=== PATIENT | female | born 1975 | race Caucasian/White ===

== ENCOUNTER 2018-03-15 05:49 | Inpatient (IN) | payer SELFPAY ==
--- NOTE | 2018-03-14 21:21 | PDGENHP ---
History and Physical - Chief Complaint Left Hip Pain - History of Present Illness 1. Left~Hip Dyplasia 2. ~~Right Borderline hip dysplasia 3.~~~Bilateral~Femoroacetabular impingement (ABBY) Cam type,~with~resultant labral tear; LEFT>RIGHT 4.~~~Right femoral retro-torsion 5.~~~Radiographic~signs of~Osteitis Pubis HISTORY OF PRESENT ILLNESS: Markis a 42 y.o.~very~~active female~who I have had the pleasure to consult on today. 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 ~Markenjoys ultra marathons, lifting weights, cross country skiing. Halima's~bilateral~hip pain~(L>R)~started 16 years ago, with~some~recalled trauma or injury (fractured coccyx in 1987) (stress~fracture right inferior pubic ramus 2003), and with~some~previous complaints. Markhas~a known history of hip dysplasia. Referred by Dr. Thompson for~hip~dysplasia. Presentation today is of~anterior, posterior, lateral~bilateral~hip pain. ~The hip~does~wake her~at night~and does~click and catch on her. Sitting~can be a real struggle~for her.~Markdoes~report suffering from lower back pain episodes. Markhas~participated in physical therapy (June 2017-present)~and has~ tried other conservative measures including dry needling, chiropractic treatments and massage therapy.~She~has not~received sufficient symptomatic improvement. Markhas not~utilized medication for pain management. Markunderstands that she~has a hip and pelvis problem which should be researched and wishes to get a better understanding of her~hip status, followed by an establishment of a treatment strategy, hoping she~would be able to get back to her~well being active life. History: Past medical history:~~ None which is relevant~ Relevant familial history:~None which is relevant~ Past surgical history:~ No. Surgery Anesthesia 1 Right ankle reconstruction general 2 Left ankle reconstruction general 3 Bilateral breast implants general Markdenies problematic issues with general anesthesia in the past. I have reviewed, verified and agree with the past medical, surgical, family and social history. Current Medications:~currently has no medications in their medication list. ALLERGIES:~is allergic to adhesive; erythromycin; and keflex [cephalexin]. Objective: Physical Examination: Markis 5~feet 4~inches tall and weighs 108~Lbs. Markis AAO x3; she~is well- nourished, in NAD. Skin is warm and dry. ~Breathing is non-labored. ~CV with RRR by pulse. Abdomen is soft, NTND. Currently,~she~walks with a abnormal~antalgic gait favoring LEFT side Trendelenburg sign is~negative~and proprioception is reduced,~both~sides. She~presents with mild~signs of joint laxity. Beightons Score:~2 (Right thumb, touching floor) Lower spine examination is~positive~for sciatic~or femoral nerve irritation with negative~SLR &~femoral stretch tests. Range of motion of the spine is normal~for flexion, extension, and rotations, with no~associated pain. Strength, Sensation and pulses are~normal -~bilaterally Ankles and knees exams are~normal~and no~mal-alignment is evident. She~has~right~1~cm short leg length discrepancy. Thigh circumference is~symmetric~with no evidence for muscle atrophy~on both~ sides. Hip ROM (degrees): FL ER At 90~hip FL IR At 90~hip FL AB AD EX IR Neutral hip ER Neutral hip R 110 55 20 40 10 15 40 25 L 110 45 40 40 10 20 50 20 Specific hip and pelvis tests: Impingement Test JE Roll Add. Longus R +++ +++ Negative +++ L +++ +++ Negative +++ Glut. Med ITB Posterior Imp R Negative 5/5 strength Negative 5/5 strength Negative L Negative 5/5 strength Negative 5/5 strength Negative Squeeze test measured~strong Bony Symphysis pubis is~painful~to touch while concentric activity of the rectus abdominis, does~produce pain at its insertion. Ilio Psos specific tests are~positive for pain during cycling for~both hips~and no snap. HF has~good strength, no pain~both hips. Greater trochanteric burse is~pain free~on both hips. Piriformis tests: FAIR is~negative,~with no~local signs of neuritis related to sciatic nerve. SIJs examination is~normal~with normal~JE in relation and local tenderness. Hamstrings tests are~negative~functional contraction and postive~tendinopathy both hips. Adductor Tree origin: tender to palpation bilaterally. Imaging: Radiology studies which I have personally reviewed, analyzed and measured are below: XR: AP of the hip and pelvis: Performed in a~good~technique Coccyx to pubic symphysis distance~1.5~cm. Standing [place] Lines are~preserved. Minimal~Pathological signs are seen in the Symphysis Pubis. Minimal~Pathological signs are seen at the Ischial tuberosity. ~ Specific measurements show: NSA~ LCE Sourcil~Angle Sharp's angle Lat. Cam Lat. Pincer C.Over~sign Head~Coverage % ATDmm R N 25 8 38 + - - 85 N L N 18 14 45 + - - 75 N Pos. wall sign ISS NAD ~~Dysplasia Comments R Negative Negative 17.2~mm + L Negative Negative 16.6~mm ++ Sclerosis Sup. Lat. OA Cysts Joint Space-WBZ Joint Space-Medial R Negative Negative Negative 4.4~mm 3.9~mm L Negative Negative Negative 5.3~mm 4.9~mm CT / 3D:~MEASUREMENTS: Right hip: Lateral center edge angle: 15 degrees Anterior center edge angle: 38 degrees Equatorial acetabular version angle: 29 degrees Anteverted. Cranial acetabular version angle: 30 degrees Anteverted. Femoral neck shaft angle: 140 degrees Femoral neck version angle: 14 degrees internalized Femoral shaft torsion angle: 0 degrees Left hip: Lateral center edge angle: 18 degrees Anterior center edge angle: 34 degrees Equatorial acetabular version angle: 33 degrees Anteverted. Cranial acetabular version angle: 28 degrees Anteverted. Femoral neck shaft angle: 143 degrees Femoral neck version angle: 4 degrees externalized Femoral shaft torsion angle: 17 degrees externalized MRI shows:~good cartilage coverage, labral tear, no bone edema or cysts. Impression and plan:~ Halima~is a 42 y.o.~active female~suffering from symptomatic Bilateral~hip pain due to~Hip Dyplasia and~Femoroacetabular impingement (ABBY)~Cam type,~with~ resultant labral tear causing significant disability to~her~and altering her~ sport and life activities. Physical examination, imaging, and~her~story correspond with the diagnosis mentioned above. I explained that hip dysplasia is a condition wherein the hip joint has excessive play~and instability due to a variety of factors, including the depth and adequacy of the socket, the orientation of the femur bone, and ligament laxity around the hip joint. Dysplasia ranges in severity from borderline to alexandru, with treatment options being specific to the specific nature of the problem. Left untreated, the instability in the hip joint can cause progressive tearing of the labrum and deterioration of the surface cartilage, ultimately resulting in progressive osteoarthritis of the hip. I explained that femoroacetabular impingement (ABBY - Cam type) arises due to a bony or soft tissue conflict between the femur (ball) and acetabulum (socket) caused by an abnormality in the shape of the femoral head and neck. Over time, repetitive impingement can result in damage to the labrum and adjacent surface cartilage within the socket, ultimately giving rise to progressive osteoarthritis of the hip. I explained that although a labral tear can be a source of pain, it is rarely the root of the problem and typically occurs secondary to an underlying abnormality in the shape and mechanics of the hip joint. I reviewed conservative treatment options for Dysplasia and ABBY including activity modification to avoid positions of impingement or instability, physical therapy, non-steroidal anti-inflammatory medications, and various injections (corticosteroid and PRP) aimed at reducing inflammation in the hip joint or/and preventing dynamic instability and impingement. PRP injections may promote healing and reduce symptoms in certain cases but it will not repair chronically damaged tissue. Although these measures may help to buy time~and reduce current level of symptoms, they are not a definitive solution to the problem given the underlying abnormality in the shape of the hip joint. Patients who have failed conservative management and continue to experience symptoms are candidates for definitive surgical treatment, which may consist of hip arthroscopy alone or in combination with more invasive bony realignment procedures of the hip socket and/or femur called periacetabular osteotomy (LISANDRA) or derotational femoral osteotomy (DFO). Hip arthroscopy typically includes treating the labrum with either repair or reconstruction of the torn labrum; as well as addressing the underlying abnormalities by restoring the normal shape to the hip joint. If the cartilage is damaged a Microfracture surgical procedure may also be necessary to help stimulate the growth of fibrocartilage. If a patient requires a labral reconstruction or a Microfracture, the initial rehabilitation from the surgery may take longer, but the terminal supervisor results are typically favorable. I reviewed the technical aspects of periacetabular osteotomy (LISANDRA) including risks, benefits, and expected course of recovery.~Markunderstands that LISANDRA is an inpatient procedure carried out through two medium sized incisions on the front and back of the hip joint. The hip socket is cut, realigned, and stabilized with 2 3 internal screws. Risks include infection, bleeding, injury to nearby nerves or vessels, stiffness, persistent pain, instability, failure of bony healing, implant related complications, and venous thromboembolic disease. Rarely, revision surgery may be required to address these problems. Risks, potential complications, side effects and recovery from surgical procedure were discussed in length. We explained how this surgery is an open procedure, and though patients tend to do well in the long-term, it involves significant pain in the first 2-4 weeks post-op and a rather lengthy rehab.~Overall recovery takes approximately 6 12~months depending on the extent of damage and degree of repair. Markunderstands that she~will undergo hip arthroscopy 1 week prior to the LISANDRA to address damage inside the hip joint. Markunderstands that hip arthroscopy and LISANDRA are two separate procedures that are best performed one week apart, with the arthroscopy commencing first to "tighten up" any pathology evident in the hip joint (labral repair, etc.) and the LISANDRA open procedure occurring 7-10 days later to realign the acetabulum. We asked Halima to run up and down the stairs to elicit and localize her source of pain. ~After doing this, she was able to localize her pain. ~We then did an injection into her LEFT HIP JOINT. In order to differentiate between the various possible sources of pain~Mark opted to move forward with an intra articular injection today in clinic. After verbal consent was obtained and Markvoiced understanding of risks of infection , misplaced injection, fat or skin atrophy or injection into unintended structures, skin was prepped and draped in routine sterile fashion. With sterile technique, after local skin and subcutaneous tissues were injected with 5cc 1% lidocaine, an injection of 7cc of 1% lidocaine+marcaine~was injected into Halima's hip joint without complication. The procedure was well tolerated.~ Marknoted improved symptoms with activity immediately after injection. The injection took 100% of the pain away,~confirming~the hip joint as the major source of her~pain. This injection took away 100% of all of~her~sources of pain: adductor tree origin, hamstring, and pubic symphysis. We discussed how she can either do Left hip scope with Dr Thompson followed by a LISANDRA mid/end February or do a scope only for the right side now, followed by scope+LISANDRA on the left 3 month later. Markwill contact us if she~wishes to pursue further treatment in the future. Markis happy with this plan. I have also supplied~her~with handouts, outlining the expected surgical treatment and rehab involved. I wish~Markall the best, ~~ Gray Qureshi, PAC History Information - Allergies/Home Medication List Allergies/Adverse Reactions: adhesive tape Allergy (Verified 02/11/18 11:47) cephalexin [From Keflex] Allergy (Verified 02/11/18 11:47) Vertigo erythromycin base Allergy (Verified 02/11/18 11:47) Vomiting Home Medications: Aspirin [Aspirin 325 mg (*)] 325 mg PO DAILY 02/11/18 [Last Taken Unknown] Diazepam [Valium 5 MG (*)] 5 mg PO TID PRN 02/11/18 [Last Taken Unknown] Hydrocodone/APAP 5/325 [[place] 5/325 (*)] 1 - 2 each PO Q4-6PRN PRN 02/11/18 [ Last Taken Unknown] Naproxen/Esomeprazole Mag [Vimovo Dr 375-20 mg Tablet] 1 each PO BIDMEAL [Last Taken Unknown] Ondansetron Odt [Zofran Odt 4 mg (*)] 4 mg PO Q4 PRN 02/11/18 [Last Taken Unknown] I have personally reviewed and updated: medical history - Social History Smoking Status: Never smoked Review of Systems Review of Systems: Physical Exam Physical Exam:
[2018-03-15] MEDS ORDERED: PREGABALIN 150 MG CAP PO ONE (06:03)
[2018-03-15] MEDS ORDERED: LR 1,000 ML IV ONE (06:03)
[2018-03-15] MEDS ORDERED: TRANEXAMIC ACID 1,000 MG in NS 100 ML IV ONE (06:03)
[2018-03-15] MEDS ORDERED: ACETAMINOPHEN 500 MG TAB PO ONE (06:03)
[2018-03-15] MEDS ORDERED: LIDOCAINE 1% 2 ML INJ ID PRN (06:03)
[2018-03-15] MEDS ORDERED: CLINDAMYCIN 900 MG/DEXTROSE 50 ML IV ONE (06:03)
[2018-03-15] MEDS ORDERED: SCOPOLAMINE HYDROBROMIDE 1 MG/3 DAYS PATCH TD ONE (06:03)
[2018-03-15] MEDS ORDERED: LIDOCAINE 1% 2 ML INJ ONE (06:37)
--- NOTE | 2018-03-15 07:11 | PDANEPAE ---
ANE Past Medical History - Cardiovascular History Hx Hypertension: No Hx Arrhythmias: No Hx Chest Pain: No Hx Coronary Artery / Peripheral Vascular Disease: No Hx CHF / Valvular Disease: Yes Hx Palpitations: No Cardiovascular History Comment: Pt was told when she was 17yrs old she had mitral valve prolape. never had any issues - Pulmonary History Hx COPD: No Hx Asthma/Reactive Airway Disease: No Hx Recent Upper Respiratory Infection: No Hx Oxygen in Use at Home: No Hx Sleep Apnea: No Sleep Apnea Screening Result - Last Documented: Negative - Neurologic History Hx Cerebrovascular Accident: No Hx Seizures: No Hx Dementia: No - Endocrine History Hx Diabetes: No - Renal History Hx Renal Disorders: No - Liver History Hx Hepatic Disorders: No - Neurological & Psychiatric Hx Hx Neurological and Psychiatric Disorders: No - Cancer History Hx Cancer: No - GI History Hx Gastrointestinal Disorders: Yes Gastrointestinal History Comment: hip dysplasia - Other Health History Other Health History: none - Chronic Pain History Chronic Pain: No - Surgical History Prior Surgeries: 4yrs ago bilat ankle reconstructive ANE Review of Systems Review of Systems: - Exercise capacity METS (RN): 6 METS ANE Patient History - Allergies Allergies/Adverse Reactions: adhesive tape Allergy (Verified 02/11/18 11:47) cephalexin [From Keflex] Allergy (Verified 02/11/18 11:47) Vertigo erythromycin base Allergy (Verified 02/11/18 11:47) Vomiting - Home Medications Home medications: home medication list seen and reviewed Home Medications: Aspirin [Aspirin 325 mg (*)] 325 mg PO DAILY 02/11/18 [Last Taken Unknown] Diazepam [Valium 5 MG (*)] 5 mg PO TID PRN 02/11/18 [Last Taken Unknown] Hydrocodone/APAP 5/325 [[place] 5/325 (*)] 1 - 2 each PO Q4-6PRN PRN 02/11/18 [ Last Taken Unknown] Naproxen/Esomeprazole Mag [Vimovo Dr 375-20 mg Tablet] 1 each PO BIDMEAL [Last Taken Unknown] Ondansetron Odt [Zofran Odt 4 mg (*)] 4 mg PO Q4 PRN 02/11/18 [Last Taken Unknown] - NPO status NPO Status: no food or drink >8 hours NPO Since - Liquids (Date): 03/15/18 NPO Since - Liquids (Time): 22:00 NPO Since - Solids (Date): 03/15/18 NPO Since - Solids (Time): 19:00 - Anes Hx Anes Hx: no prior problems - Smoking Hx Smoking Status: Never smoked - Family Anes Hx Family Hx Anesthesia Complications: none ANE Labs/Vital Signs - Vital Signs Height: 163.83 cm Weight: 47.627 kg ANE Physical Exam - Airway Neck exam: FROM (Pt reports painless TMJ clicking with jaw opening.) Mallampati Score: Class 2 Mouth exam: normal dental/mouth exam - Pulmonary Pulmonary: no respiratory distress, no rales or rhonchi, clear to auscultation - Cardiovascular Cardiovascular: regular rate and rhythym, no murmur, rub, or gallop - ASA Status ASA Status: II ANE Anesthesia Plan Anesthesia Plan: general endotracheal anesthesia
[2018-03-15] MEDS ORDERED: MIDAZOLAM 2 MG/2 ML VIAL IVP ONE (07:16)
[2018-03-15 07:29] LABS: PLATELET COUNT 134 10^3/uL (150-400)
[2018-03-15] MEDS ORDERED: DEXMEDETOMIDINE HCL 400 MCG in NS 100 ML IV SCH (07:30)
[2018-03-15] MEDS ORDERED: PROPOFOL 200 MG/20 ML VIAL ONE (07:34)
[2018-03-15] MEDS ORDERED: LIDOCAINE 2% 2 ML INJ ONE (07:36)
[2018-03-15] MEDS ORDERED: DEXAMETHASONE 4 MG/ML VIAL ONE ×2 (07:36)
[2018-03-15] MEDS ORDERED: ONDANSETRON 4 MG/2 ML VIAL ONE (07:36)
[2018-03-15] MEDS ORDERED: ROCURONIUM 50 MG/5 ML VIAL ONE (07:36)
[2018-03-15] MEDS ORDERED: KETAMINE 200 MG/20 ML VIAL ONE (07:39)
[2018-03-15] MEDS ORDERED: CITRATE DEXTROSE SOLN 500 ML BAG ONE (08:08)
[2018-03-15] MEDS ORDERED: PHENYLEPHRINE HCL 100 MCG/ML SYR ONE (08:08)
[2018-03-15] MEDS ORDERED: PHENYLEPHRINE 10 MG/ML SDV ONE (08:49)
[2018-03-15] MEDS ORDERED: GLYCOPYRROLATE 0.2 MG/1 ML VIAL ONE (09:03)
[2018-03-15] MEDS ORDERED: ONDANSETRON 4 MG/2 ML VIAL IVP PRN ×2 (12:31→13:07)
[2018-03-15] MEDS ORDERED: ACETAMINOPHEN 500 MG TAB PO PRN (12:31)
[2018-03-15] MEDS ORDERED: NALOXONE HCL 0.4 MG/ML INJ IVP PRN ×2 (12:31→13:09)
[2018-03-15] MEDS ORDERED: oxyCODONE IR 5 MG TAB PO PRN ×2 (12:31→13:09)
[2018-03-15] MEDS ORDERED: LR 500 ML IV PRN (12:31)
[2018-03-15] MEDS ORDERED: PROMETHAZINE HCL 25 MG/ML INJ IVP PRN (12:31)
[2018-03-15] MEDS ORDERED: DIAZEPAM 5 MG/ML 1 ML SYR IVP PRN (12:31)
[2018-03-15] MEDS ORDERED: MEPERIDINE 25 MG/0.5 ML AMP IVP PRN (12:31)
[2018-03-15] MEDS ORDERED: MAGNESIUM HYDROXIDE 30 ML UDCUP PO PRN (13:07)
[2018-03-15] MEDS ORDERED: DIAZEPAM 2 MG TAB PO PRN (13:07)
[2018-03-15] MEDS ORDERED: POLYETHYLENE GLYCOL 3350 17 GM PKT PO PRN (13:07)
[2018-03-15] MEDS ORDERED: ONDANSETRON DISINTEGRATING 4 MG TAB PO PRN (13:07)
[2018-03-15] MEDS ORDERED: BISACODYL 10 MG SUPP PR PRN (13:07)
[2018-03-15] MEDS ORDERED: LACTULOSE 20 GM/30 ML UDCUP PO PRN (13:07)
[2018-03-15] MEDS ORDERED: HYDROmorphONE/DILAUDID 6 MG/30 ML PCA IV PRN (13:09)
[2018-03-15] MEDS ORDERED: METOCLOPRAMIDE 10 MG/2 ML VIAL IVP PRN (13:09)
[2018-03-15] MEDS ORDERED: diphenhydrAMINE 25 MG CAP PO PRN (13:09)
[2018-03-15] MEDS: PHENYLEPHRINE HCL 100 MCG/ML SYR IVP PRN ×2 (13:17→13:31)
--- NOTE | 2018-03-15 13:31 | POSTANESTH ---
Post Anesthetic Evaluation Cardiovascular Status: Tx Hyper/Hypo-tension (Hypotensive on arrival (systolic 80s), likely due to dexmedetomidine. Giving fluid and phelylephrine as needed.) Respiratory Status: Normal, Stable, Similar to Pre-op Cond. Level of Consciousness/Mental Status: Can Participate in Eval, Mildly Sleepy, Arousable Pain Control: Adequate, Prn Tx Ordered Nausea/Vomiting Control: Adequate, Prn Tx Ordered Complications Possibly Related to Anesthesia: None Noted
[2018-03-15] MEDS ORDERED: oxyCODONE IR 5 MG TAB ONE (13:46)
[2018-03-15] MEDS ORDERED: ACETAMINOPHEN 500 MG TAB ONE (13:47)
[2018-03-15] MEDS ORDERED: fentaNYL 100 MCG/2 ML INJ ONE (13:47)
[2018-03-15] MEDS: fentaNYL 100 MCG/2 ML INJ IVP PRN ×2 (13:48→13:53)
[2018-03-15] MEDS: oxyCODONE IR 15 MG TAB PO SCH ×3 (14:45→21:49)
[2018-03-15] MEDS: NS 1,000 ML IV SCH (14:48)
--- NOTE | 2018-03-15 15:05 | PDMN ---
Medical Necessity Medical necessity: MARIANELA Grg musculoskeletal sgy - [facility] INPT only
[2018-03-15] MEDS: SENNOSIDES/DOCUSATE SODIUM TAB PO SCH (21:49)
[2018-03-15] MEDS: NAPROXEN SODIUM 220 MG TAB PO SCH (22:41)
[2018-03-16] MEDS: NS 1,000 ML IV SCH (01:02)
[2018-03-16] MEDS: oxyCODONE IR 15 MG TAB PO SCH ×6 (01:03→21:05)
[2018-03-16] MEDS: NAPROXEN SODIUM 220 MG TAB PO SCH ×2 (09:52→21:04)
[2018-03-16] MEDS: SENNOSIDES/DOCUSATE SODIUM TAB PO SCH ×2 (09:53→21:05)
[2018-03-16] MEDS: PANTOPRAZOLE SODIUM 40 MG TAB PO SCH (09:53)
[2018-03-16] MEDS: ACETAMINOPHEN 325 MG TAB PO PRN ×2 (11:09→21:09)
--- NOTE | 2018-03-16 12:04 | ASMTCMCOM ---
CM Note CM Note Notes: Pt had planned surgery for hip dysplasia. PT rec home/outpatient, OT eval pending. Pt has three children at home. Pt likely independent. CM to follow. Date Signed: 03/16/2018 12:04 PM Electronically Signed By:LISBETH Luna
--- NOTE | 2018-03-16 18:21 | SOAPPROG ---
SOAP Progress Note Assessment/Plan: Assessment: 1 day post op Left Periacetabular Osteotomy Plan: Pelvis Xray in the morning, if this looks good she can be discharged home up with PT/OT Oral analgesics if needed. 03/16/18 18:13 Subjective: Halima is doing very well this evening. She denies having any pain despite not having taken an opioid since yesterday afternoon. She denies any nausea, cp or sob. She's been up walking the halls. She'd like to go home tomorrow. Objective: Vital Signs Temp Pulse Resp BP Pulse Ox 36.6 C 67 14 90/38 L 93 03/16/18 15:28 03/16/18 15:28 03/16/18 15:28 03/16/18 15:28 03/16/18 15:28 Laboratory Results 03/16/18 04:38 03/16/18 04:38 03/15/18 03/16/18 03/17/18 05:59 05:59 05:59 Intake Total 5825 Output Total 2825 1600 Balance 3000 -1600 Well appearing in NAD Left hip: dressings clean dry intact some ecchymosis and edema some thigh numbness NVI distally Full ROM of foot, EHL, and ankle - Pending Discharge Pending Discharge Within 24 Hours: Yes Pending Discharge Date: 03/17/18 Pending Discharge Time: 11:00 ICD10 Worksheet Patient Problems: Problems Problem Status Onset Post-operative pain Acute - ICD10 Problem Qualifiers (1) Post-operative pain
[2018-03-17] MEDS: oxyCODONE IR 15 MG TAB PO SCH ×3 (01:46→10:23)
[2018-03-17] MEDS: NAPROXEN SODIUM 220 MG TAB PO SCH (08:35)
[2018-03-17] MEDS: SENNOSIDES/DOCUSATE SODIUM TAB PO SCH (10:22)
[2018-03-17] MEDS: PANTOPRAZOLE SODIUM 40 MG TAB PO SCH (10:22)
[2018-03-17 11:29] VITALS: BP 100/58
[2018-03-17] MEDS ORDERED: ASPIRIN EC 81 MG TAB PO SCH (13:07)
--- NOTE | 2018-03-17 14:17 | ASMTLACE ---
JAYLENE Length of stay for Answers: 3 days current admission Acuity / Level of Answers: Yes Care: Did the patient have an inpatient admission? 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
--- NOTE | 2018-03-17 14:19 | ASMTCMCOM ---
CM Note CM Note Notes: Pt medically stable for d/c. PT/OT clear pt for home, no CM d/c needs identified. Date Signed: 03/17/2018 02:19 PM Electronically Signed By:LISBETH Luna
--- NOTE | 2018-03-23 22:00 | GDS ---
DISCHARGE SUMMARY The patient underwent a left periacetabular osteotomy for left hip acetabular dysplasia on March 15, 2018. Intraoperatively, she chose not to have a spinal. Garcia was placed, which was discontinued the following day. She was up on her own the night of her surgery, was up walking the halls her 1st postoperative day. She did not take any oral analgesia and did not use the POLICE RECORDS CLERK. Pelvis x-ray was obtained on her 1st postoperative day, which showed good bone and screw fixation. She was discharged on her 1st postoperative day in good condition. She will go home with SCDs to be worn 24 hours a day, 7 days a week for 2 weeks, and thereafter only at night for one other week. She will be nonweightbearing on her left lower extremity for 2 weeks until x-rays are obtained at her 1st postoperative visit. She will be using baby aspirin daily for 1 month for DVT prophylaxis. She was discharged in good condition. /[id number]/MODL MTDD
== END 2018-03-17 13:52 | disposition home or self-care (01) | DRG 482 ==
LOC: F3N 05:49
PROVIDERS: ADMIT Orthopaedic Surgery Sports Medicine; ATTEND Orthopaedic Surgery Sports Medicine
PROC: 0Q830ZZ Division of Left Pelvic Bone, Open Approach (ICD-10-PCS; principal; 2018-03-15 07:15)
PROC: 0SSB04Z Reposition Left Hip Joint with Internal Fixation Device, Open Approach (ICD-10-PCS; principal; 2018-03-15 07:15)
DX: M25.852 Other specified joint disorders, left hip (principal); Q65.89 Other specified congenital deformities of hip
CPT/HCPCS: 97116-GP; 97161-GP; 97165-GO; 97530-GO; 97530-GP; 97535-GO; C1713; J1100; J2270; J2370; J2405; J2704; J3010; J7060

== ENCOUNTER 2018-10-04 05:46 | Day surgery (SDC) | payer SELFPAY ==
--- NOTE | 2018-10-03 20:53 | PDGENHP ---
History and Physical - Chief Complaint Left Hip Pain - History of Present Illness 1. History of Left LISANDRA 2. 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 ~Markenjoys ultra marathons, lifting weights, cross country skiing. Halima's~Left~hip pain~started 16 years ago, with~some~recalled trauma or injury~ (fractured coccyx in 1987) (stress~fracture right inferior pubic ramus 2003), and with~some~previous complaints.~Markhas~a known history of hip dysplasia. Referred by Dr. Thompson for~hip~dysplasia. Presentation today is of~anterior, posterior, lateral~bilateral~hip pain. ~The hip~does~wake her~at night~and does~click and catch on~her. Sitting~can be a real struggle~for her.~Markdoes~report suffering from lower back pain episodes. Markhas~participated in physical therapy (June 2017-present)~and has~ tried other conservative measures including dry needling, chiropractic treatments and massage therapy.~She~has not~received sufficient symptomatic improvement. Markhas not~utilized medication for pain management. Markunderstands that~siena~has a hip and pelvis problem which should be researched and wishes to get a better understanding of~her~hip status, followed by an establishment of a treatment strategy, hoping~siena~would be able to get back to~her~well being active life. History: Past medical history:~~ None which is relevant~ Relevant familial history:~None which is relevant~ Past surgical history:~ No. Surgery Anesthesia 1 Right ankle reconstruction general 2 Left ankle reconstruction general 3 Bilateral breast implants general 4. Left Hip Arthroscopy 5. Left LISANDRA Varghese~denies problematic issues with general anesthesia in the past. I have reviewed, verified and agree with the past medical, surgical, family and social history. Current Medications:~currently has no medications in their medication list. ALLERGIES:~is allergic to adhesive; erythromycin; and keflex [cephalexin]. Objective: Physical Examination: Markis 5~feet~4~inches tall and weighs~108~Lbs. Markis AAO x3; she~is well- nourished, in NAD. Skin is warm and dry. ~Breathing is non-labored. ~CV with RRR by pulse. Abdomen is soft, NTND. Currently,~siena~walks with a~abnormal~antalgic gait favoring LEFT side Trendelenburg sign is~negative~and proprioception~is reduced,~both~sides. She~presents~with mild~signs of joint laxity.~Beightons Score:~2 (Right thumb, touching floor) Lower spine examination is~positive~for sciatic~or femoral nerve irritation with negative~SLR &~femoral stretch tests. Range of motion of the spine is normal~for flexion, extension, and rotations,~with no~associated pain. Strength, Sensation and pulses are~normal -~bilaterally Ankles and knees exams are~normal~and~no~mal-alignment is evident.~ Siena~has~right~1~cm short leg length discrepancy. Thigh circumference is~symmetric~with no evidence for muscle atrophy~on both~ sides. Hip ROM (degrees): FL ER At 90~hip FL IR At 90~hip FL AB AD EX IR Neutral hip ER Neutral hip R 110 55 20 40 10 15 40 25 L 110 45 40 40 10 20 50 20 Specific hip and pelvis tests: Impingement Test JE Roll Add. Longus R +++ +++ Negative +++ L +++ +++ Negative +++ Glut. Med ITB Posterior Imp R Negative 5/5 strength Negative 5/5 strength Negative L Negative 5/5 strength Negative 5/5 strength Negative Squeeze test measured~strong Bony Symphysis pubis is~painful~to touch while concentric activity of the rectus abdominis, does~produce pain at its insertion. Ilio Psos specific tests are~positive for pain during cycling for~both hips~and no snap. HF has~good strength, no pain~both hips. Greater trochanteric burse is~pain free~on both hips. Piriformis tests: FAIR is~negative,~with no~local signs of neuritis related to sciatic nerve. SIJs examination is~normal~with~normal~JE in relation and local tenderness. Hamstrings tests are~negative~functional contraction and postive~tendinopathy both hips. Adductor Tree origin: tender to palpation bilaterally. Imaging: Radiology studies which I~have personally reviewed, analyzed and measured are below: XR: AP of the hip and pelvis: Performed in a~good~technique Coccyx to pubic symphysis distance~1.5~cm. Standing [place]~Lines are preserved. Minimal~Pathological signs are seen in the Symphysis Pubis.~ Minimal~Pathological signs are seen at the Ischial~tuberosity. ~ Specific measurements show: NSA~ LCE Sourcil~Angle Sharp's angle Lat. Cam Lat. Pincer C.Over~sign Head~Coverage % ATDmm R N 25 8 38 + - - 85 N L N 18 14 45 + - - 75 N Pos. wall sign ISS NAD ~~Dysplasia Comments R Negative Negative 17.2~mm + L Negative Negative 16.6~mm ++ Sclerosis Sup. Lat. OA Cysts Joint Space-WBZ Joint Space-Medial R Negative Negative Negative 4.4~mm 3.9~mm L Negative Negative Negative 5.3~mm 4.9~mm CT / 3D:~MEASUREMENTS: Right hip: Lateral center edge angle: 15 degrees Anterior center edge angle: 38 degrees Equatorial acetabular version angle: 29 degrees Anteverted. Cranial acetabular version angle: 30 degrees Anteverted. Femoral neck shaft angle: 140 degrees Femoral neck version angle: 14 degrees internalized Femoral shaft torsion angle: 0 degrees Left hip: Lateral center edge angle: 18 degrees Anterior center edge angle: 34 degrees Equatorial acetabular version angle: 33 degrees Anteverted. Cranial acetabular version angle: 28 degrees Anteverted. Femoral neck shaft angle: 143 degrees Femoral neck version angle: 4 degrees externalized Femoral shaft torsion angle: 17 degrees externalized MRI shows:~good cartilage coverage, labral tear, no bone edema or cysts. Impression and plan:~ Halima~is a~42 y.o.~active female~suffering from symptomatic~Bilateral~hip pain due to~Hip Dyplasia and~Femoroacetabular impingement (ABBY)~Cam type,~with~ resultant labral tear causing significant disability to~her~and altering~her~ sport and life activities. Physical examination, imaging, and~her~story correspond with the diagnosis mentioned above. I explained that hip dysplasia is a condition wherein the hip joint has excessive play~and instability due to a variety of factors, including the depth and adequacy of the socket, the orientation of the femur bone, and ligament laxity around the hip joint. Dysplasia ranges in severity from borderline to alexandru, with treatment options being specific to the specific nature of the problem. Left untreated, the instability in the hip joint can cause progressive tearing of the labrum and deterioration of the surface cartilage, ultimately resulting in progressive osteoarthritis of the hip. I explained that femoroacetabular impingement (ABBY - Cam type) arises due to a bony or soft tissue conflict between the femur (ball) and acetabulum (socket) caused by an abnormality in the shape of the femoral head and neck. Over time, repetitive impingement can result in damage to the labrum and adjacent surface cartilage within the socket, ultimately giving rise to progressive osteoarthritis of the hip. I explained that although a labral tear can be a source of pain, it is rarely the root of the problem and typically occurs secondary to an underlying abnormality in the shape and mechanics of the hip joint. I reviewed conservative treatment options for Dysplasia and ABBY including activity modification to avoid positions of impingement or instability, physical therapy, non-steroidal anti-inflammatory medications, and various injections (corticosteroid and PRP) aimed at reducing inflammation in the hip joint or/and preventing dynamic instability and impingement. PRP injections may promote healing and reduce symptoms in certain cases but it will not repair chronically damaged tissue. Although these measures may help to buy time~and reduce current level of symptoms, they are not a definitive solution to the problem given the underlying abnormality in the shape of the hip joint. Patients who have failed conservative management and continue to experience symptoms are candidates for definitive surgical treatment, which may consist of hip arthroscopy alone or in combination with more invasive bony realignment procedures of the hip socket and/or femur called periacetabular osteotomy (LISANDRA) or derotational femoral osteotomy (DFO). Hip arthroscopy typically includes treating the labrum with either repair or reconstruction of the torn labrum; as well as addressing the underlying abnormalities by restoring the normal shape to the hip joint. If the cartilage is damaged a Microfracture surgical procedure may also be necessary to help stimulate the growth of fibrocartilage. If a patient requires a labral reconstruction or a Microfracture, the initial rehabilitation from the surgery may take longer, but the jail results are typically favorable. I reviewed the technical aspects of periacetabular osteotomy (LISANDRA) including risks, benefits, and expected course of recovery.~Markunderstands that LISANDRA is an inpatient procedure carried out through two medium sized incisions on the front and back of the hip joint. The hip socket is cut, realigned, and stabilized with 2 3 internal screws. Risks include infection, bleeding, injury to nearby nerves or vessels, stiffness, persistent pain, instability, failure of bony healing, implant related complications, and venous thromboembolic disease. Rarely, revision surgery may be required to address these problems. Risks, potential complications, side effects and recovery from surgical procedure were discussed in length. We explained how this surgery is an open procedure, and though patients tend to do well in the long-term, it involves significant pain in the first 2-4 weeks post-op and a rather lengthy rehab.~Overall recovery takes approximately 6 12~months depending on the extent of damage and degree of repair. Markunderstands that she~will undergo hip arthroscopy 1 week prior to the LISANDRA to address damage inside the hip joint. Markunderstands that hip arthroscopy and LISANDRA are two separate procedures that are best performed one week apart, with the arthroscopy commencing first to "tighten up" any pathology evident in the hip joint (labral repair, etc.) and the LISANDRA open procedure occurring 7-10 days later to realign the acetabulum. We asked Halima to run up and down the stairs to elicit and localize her source of pain. ~After doing this, she was able to localize her pain. ~We then did an injection into her LEFT HIP JOINT. In order to differentiate between the various possible sources of pain~Mark opted to move forward with an intra articular injection today in clinic. After verbal consent was obtained and Markvoiced understanding of risks of infection , misplaced injection, fat or skin atrophy or injection into unintended structures, skin was prepped and draped in routine sterile fashion. With sterile technique, after local skin and subcutaneous tissues were injected with 5cc 1% lidocaine, an injection of 7cc of 1% lidocaine+marcaine~was injected into Halima's hip joint without complication. The procedure was well tolerated.~ Marknoted improved symptoms with activity immediately after injection. The injection took 100% of the pain away,~confirming~the hip joint as the major source of her~pain. This injection took away 100% of all of~her~sources of pain: adductor tree origin, hamstring, and pubic symphysis. We discussed how she can either do Left hip scope with Dr Thompson followed by a LISANDRA mid/end February or do a scope only for the right side now, followed by scope+LISANDRA on the left 3 month later. Markwill contact us if she~wishes to pursue further treatment in the future. Markis happy with this plan. I have also supplied~her~with handouts, outlining the expected surgical treatment and rehab involved. I wish~Markall the best, ~~ Gray Qureshi, PAC History Information - Allergies/Home Medication List Allergies/Adverse Reactions: adhesive tape Allergy (Verified 09/23/18 10:29) cephalexin [From Keflex] Allergy (Verified 09/23/18 10:29) Vertigo erythromycin base Allergy (Verified 09/23/18 10:29) Vomiting Home Medications: NK [No Known Home Meds] 09/23/18 [Last Taken Unknown] I have personally reviewed and updated: medical history - Social History Smoking Status: Never smoked Review of Systems Review of Systems: Physical Exam Physical Exam:
[2018-10-04] MEDS ORDERED: LIDOCAINE 1% 300 MG/30 ML SDV ONE (06:34)
[2018-10-04] MEDS ORDERED: PREGABALIN 150 MG CAP PO ONE (06:45)
[2018-10-04] MEDS ORDERED: ceFAZolin 2 GM/DEXTROSE 100 ML IV ONE (06:45)
[2018-10-04] MEDS ORDERED: ACETAMINOPHEN 500 MG TAB PO ONE (06:45)
[2018-10-04] MEDS ORDERED: LR 1,000 ML IV ONE (06:46)
[2018-10-04] MEDS ORDERED: MIDAZOLAM 2 MG/2 ML VIAL ONE (07:09)
[2018-10-04] MEDS ORDERED: PROPOFOL/EMULSION 500 MG/50 ML BOTTLE IV ONE (07:16)
[2018-10-04] MEDS ORDERED: REMIFENTANIL HCL 1 MG VIAL ONE (07:17)
[2018-10-04] MEDS ORDERED: BUPIVACAINE 0.5% 30 ML SDV ONE (07:22)
[2018-10-04] MEDS ORDERED: PROPOFOL 200 MG/20 ML VIAL ONE (07:27)
[2018-10-04] MEDS ORDERED: LIDOCAINE 2% 5 ML SDV ONE (07:27)
[2018-10-04 08:22] VITALS: BP 111/71
[2018-10-04] MEDS ORDERED: LR 500 ML IV PRN (08:29)
[2018-10-04] MEDS ORDERED: ACETAMINOPHEN 500 MG TAB PO PRN (08:29)
[2018-10-04] MEDS ORDERED: HYDROCODONE/APAP 5/325 TAB PO PRN (08:29)
[2018-10-04] MEDS ORDERED: NALOXONE HCL 0.4 MG/ML INJ IVP PRN (08:29)
[2018-10-04] MEDS ORDERED: ONDANSETRON 4 MG/2 ML VIAL IVP PRN (08:29)
[2018-10-04] MEDS ORDERED: PROMETHAZINE HCL 25 MG/ML INJ IVP PRN (08:29)
[2018-10-04] MEDS ORDERED: PHENYLEPHRINE HCL 100 MCG/ML SYR IVP PRN (08:29)
[2018-10-04] MEDS ORDERED: MIDAZOLAM 2 MG/2 ML VIAL IVP ONE (08:30)
--- NOTE | 2018-10-04 08:31 | PDANEPAE ---
ANE Past Medical History - Cardiovascular History Hx Hypertension: No Hx Arrhythmias: No Hx Chest Pain: No Hx Coronary Artery / Peripheral Vascular Disease: No Hx CHF / Valvular Disease: Yes Hx Palpitations: No Cardiovascular History Comment: Pt was told when she was 17yrs old she had mitral valve prolape. never had any issues - Pulmonary History Hx COPD: No Hx Asthma/Reactive Airway Disease: No Hx Recent Upper Respiratory Infection: No Hx Oxygen in Use at Home: No Hx Sleep Apnea: No Sleep Apnea Screening Result - Last Documented: Negative - Neurologic History Hx Cerebrovascular Accident: No Hx Seizures: No Hx Dementia: No - Endocrine History Hx Diabetes: No Hypothyroid: No Hyperthyroid: No Obesity: no - Renal History Hx Renal Disorders: No - Liver History Hx Hepatic Disorders: No - Neurological & Psychiatric Hx Hx Neurological and Psychiatric Disorders: No - Cancer History Hx Cancer: No - GI History Hx Gastrointestinal Disorders: No Gastrointestinal History Comment: hip dysplasia - Other Health History Other Health History: none - Chronic Pain History Chronic Pain: Yes (RIGHT HIP) - Surgical History Prior Surgeries: 4yrs ago bilat ankle reconstructive. LEFT HIP LISANDRA ANE Review of Systems Review of Systems: - Exercise capacity Exercise capacity: >=4 METS METS (RN): 6 METS ANE Patient History - Allergies Allergies/Adverse Reactions: adhesive tape Allergy (Verified 09/23/18 10:29) cephalexin [From Keflex] Allergy (Verified 09/23/18 10:29) Vertigo erythromycin base Allergy (Verified 09/23/18 10:29) Vomiting - Home Medications Home Medications: NK [No Known Home Meds] 09/23/18 [Last Taken Unknown] - NPO status NPO Since - Liquids (Date): 10/03/18 NPO Since - Liquids (Time): 22:00 NPO Since - Solids (Date): 10/03/18 NPO Since - Solids (Time): 22:00 - Smoking Hx Smoking Status: Never smoked - Family Anes Hx Family Hx Anesthesia Complications: none ANE Labs/Vital Signs - Vital Signs Blood Pressure: 111/71 Heart Rate: 75 Respiratory Rate: 17 O2 Sat (%): 100 Height: 163.83 cm Weight: 48.988 kg ANE Physical Exam - Airway Neck exam: FROM Mallampati Score: Class 2 Mouth exam: normal dental/mouth exam - Pulmonary Pulmonary: no respiratory distress, no rales or rhonchi, clear to auscultation - Cardiovascular Cardiovascular: regular rate and rhythym, no murmur, rub, or gallop - ASA Status ASA Status: I ANE Anesthesia Plan Anesthesia Plan: MAC Total IV Anesthesia: No
--- NOTE | 2018-10-04 08:31 | POSTANESTH ---
Post Anesthetic Evaluation Cardiovascular Status: Normal, Stable Respiratory Status: Normal, Stable Level of Consciousness/Mental Status: Can Participate in Eval Pain Control: Adequate, Prn Tx Ordered Nausea/Vomiting Control: Adequate, Prn Tx Ordered Complications Possibly Related to Anesthesia: None Noted
== END 2018-10-04 09:15 | disposition home or self-care (01) ==
LOC: FSGY 05:46
PROVIDERS: ATTEND Orthopaedic Surgery Sports Medicine
PROC: 0QP304Z Removal of Internal Fixation Device from Left Pelvic Bone, Open Approach (ICD-10-PCS; principal; 2018-10-04 07:15)
DX: T84.84XA Pain due to internal orthopedic prosthetic devices, implants and grafts, initial encounter (principal); M21.852 Other specified acquired deformities of left thigh; M25.852 Other specified joint disorders, left hip; M54.5 Low back pain; Y79.2 Prosthetic and other implants, materials and accessory orthopedic devices associated with adverse incidents
CPT/HCPCS: J0690; J2250; J2704

== ENCOUNTER 2018-10-25 09:39 | Day surgery (SDC) | payer SELFPAY ==
--- NOTE | 2018-10-04 06:57 | PDANEPAE ---
ANE Past Medical History - Cardiovascular History Hx Hypertension: No Hx Arrhythmias: No Hx Chest Pain: No Hx Coronary Artery / Peripheral Vascular Disease: No Hx CHF / Valvular Disease: Yes Hx Palpitations: No Cardiovascular History Comment: Pt was told when she was 17yrs old she had mitral valve prolape. never had any issues - Pulmonary History Hx COPD: No Hx Asthma/Reactive Airway Disease: No Hx Recent Upper Respiratory Infection: No Hx Oxygen in Use at Home: No Hx Sleep Apnea: No - Neurologic History Hx Cerebrovascular Accident: No Hx Seizures: No Hx Dementia: No - Endocrine History Hx Diabetes: No Hypothyroid: No Hyperthyroid: No Obesity: no - Renal History Hx Renal Disorders: No - Liver History Hx Hepatic Disorders: No - Neurological & Psychiatric Hx Hx Neurological and Psychiatric Disorders: No - Cancer History Hx Cancer: No - GI History Hx Gastrointestinal Disorders: Yes - Other Health History Other Health History: hip dysplasia - Chronic Pain History Chronic Pain: No - Surgical History Prior Surgeries: 4yrs ago bilat ankle reconstructive ANE Review of Systems Review of Systems: - Exercise capacity Exercise capacity: >=4 METS ANE Patient History - Allergies Allergies/Adverse Reactions: adhesive tape Allergy (Verified 09/23/18 10:29) cephalexin [From Keflex] Allergy (Verified 09/23/18 10:29) Vertigo erythromycin base Allergy (Verified 09/23/18 10:29) Vomiting - Home Medications Home Medications: NK [No Known Home Meds] 09/23/18 [Last Taken Unknown] - Anes Hx Anes Hx: no prior problems - Smoking Hx Smoking Status: Never smoked - Alcohol Use Alcohol Use: Rarely - Family Anes Hx Family Anes Hx: neg - N/A Family Hx Anesthesia Complications: none ANE Physical Exam - Airway Neck exam: FROM Mallampati Score: Class 2 Mouth exam: normal dental/mouth exam - Pulmonary Pulmonary: no respiratory distress, no rales or rhonchi, clear to auscultation - Cardiovascular Cardiovascular: regular rate and rhythym - ASA Status ASA Status: I ANE Anesthesia Plan Anesthesia Plan: GA w LMA Total IV Anesthesia: No
--- NOTE | 2018-10-24 21:13 | PDGENHP ---
History and Physical - Chief Complaint RIGHT HIP PAIN; LEFT HIP PAIN - History of Present Illness 1. History of Left LISANDRA/ Left Hip arthroscopy/Left Hip Hardware removal 2. 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 ~Markenjoys ultra marathons, lifting weights, cross country skiing. Halima's~hip pain~started 16 years ago, with~some~recalled trauma or injury~( fractured coccyx in 1987) (stress~fracture right inferior pubic ramus 2003), and with~some~previous complaints.~Markhas~a known history of hip dysplasia. Referred by Dr. Thompson for~hip~dysplasia. Presentation today is of~anterior, posterior, lateral~Right~hip pain. ~The hip~ does~wake her~at night~and does~click and catch on~her. Sitting~can be a real struggle~for her.~Markdoes~report suffering from lower back pain episodes. Markhas~participated in physical therapy (June 2017-present)~and has~ tried other conservative measures including dry needling, chiropractic treatments and massage therapy.~She~has not~received sufficient symptomatic improvement. Markhas not~utilized medication for pain management. Markunderstands that~siena~has a hip and pelvis problem which should be researched and wishes to get a better understanding of~her~hip status, followed by an establishment of a treatment strategy, hoping~siena~would be able to get back to~her~well being active life. History: Past medical history:~~ None which is relevant~ Relevant familial history:~None which is relevant~ Past surgical history:~ No. Surgery Anesthesia 1 Right ankle reconstruction general 2 Left ankle reconstruction general 3 Bilateral breast implants general 4. Left Hip arthroscopy 5. Left LISANDRA 6. Left hip screw removal Markdenies problematic issues with general anesthesia in the past. I have reviewed, verified and agree with the past medical, surgical, family and social history. Current Medications:~currently has no medications in their medication list. ALLERGIES:~is allergic to adhesive; erythromycin; and keflex [cephalexin]. Objective: Physical Examination: Markis 5~feet~4~inches tall and weighs~108~Lbs. Markis AAO x3; she~is well- nourished, in NAD. Skin is warm and dry. ~Breathing is non-labored. ~CV with RRR by pulse. Abdomen is soft, NTND. Currently,~siena~walks with a~abnormal~antalgic gait favoring LEFT side Trendelenburg sign is~negative~and proprioception~is reduced,~both~sides. She~presents~with mild~signs of joint laxity.~Beightons Score:~2 (Right thumb, touching floor) Lower spine examination is~positive~for sciatic~or femoral nerve irritation with negative~SLR &~femoral stretch tests. Range of motion of the spine is normal~for flexion, extension, and rotations,~with no~associated pain. Strength, Sensation and pulses are~normal -~bilaterally Ankles and knees exams are~normal~and~no~mal-alignment is evident.~ Siena~has~right~1~cm short leg length discrepancy. Thigh circumference is~symmetric~with no evidence for muscle atrophy~on both~ sides. Hip ROM (degrees): FL ER At 90~hip FL IR At 90~hip FL AB AD EX IR Neutral hip ER Neutral hip R 110 55 20 40 10 15 40 25 L 110 45 40 40 10 20 50 20 Specific hip and pelvis tests: Impingement Test JE Roll Add. Longus R +++ +++ Negative +++ L +++ +++ Negative +++ Glut. Med ITB Posterior Imp R Negative 5/5 strength Negative 5/5 strength Negative L Negative 5/5 strength Negative 5/5 strength Negative Squeeze test measured~strong Bony Symphysis pubis is~painful~to touch while concentric activity of the rectus abdominis, does~produce pain at its insertion. Ilio Psos specific tests are~positive for pain during cycling for~both hips~and no snap. HF has~good strength, no pain~both hips. Greater trochanteric burse is~pain free~on both hips. Piriformis tests: FAIR is~negative,~with no~local signs of neuritis related to sciatic nerve. SIJs examination is~normal~with~normal~JE in relation and local tenderness. Hamstrings tests are~negative~functional contraction and postive~tendinopathy both hips. Adductor Tree origin: tender to palpation bilaterally. Imaging: Radiology studies which I~have personally reviewed, analyzed and measured are below: XR: AP of the hip and pelvis: Performed in a~good~technique Coccyx to pubic symphysis distance~1.5~cm. Standing [place]~Lines are preserved. Minimal~Pathological signs are seen in the Symphysis Pubis.~ Minimal~Pathological signs are seen at the Ischial~tuberosity. ~ Specific measurements show: NSA~ LCE Sourcil~Angle Sharp's angle Lat. Cam Lat. Pincer C.Over~sign Head~Coverage % ATDmm R N 25 8 38 + - - 85 N L N 18 14 45 + - - 75 N Pos. wall sign ISS NAD ~~Dysplasia Comments R Negative Negative 17.2~mm + L Negative Negative 16.6~mm ++ Sclerosis Sup. Lat. OA Cysts Joint Space-WBZ Joint Space-Medial R Negative Negative Negative 4.4~mm 3.9~mm L Negative Negative Negative 5.3~mm 4.9~mm CT / 3D:~MEASUREMENTS: Right hip: Lateral center edge angle: 15 degrees Anterior center edge angle: 38 degrees Equatorial acetabular version angle: 29 degrees Anteverted. Cranial acetabular version angle: 30 degrees Anteverted. Femoral neck shaft angle: 140 degrees Femoral neck version angle: 14 degrees internalized Femoral shaft torsion angle: 0 degrees Left hip: Lateral center edge angle: 18 degrees Anterior center edge angle: 34 degrees Equatorial acetabular version angle: 33 degrees Anteverted. Cranial acetabular version angle: 28 degrees Anteverted. Femoral neck shaft angle: 143 degrees Femoral neck version angle: 4 degrees externalized Femoral shaft torsion angle: 17 degrees externalized MRI shows:~good cartilage coverage, labral tear, no bone edema or cysts. Impression and plan:~ Halima~is a~42 y.o.~active female~suffering from symptomatic~Right~hip pain due to~Hip Dyplasia and~Femoroacetabular impingement (ABBY)~Cam type,~with~resultant labral tear causing significant disability to~her~and altering~her~sport and life activities. Physical examination, imaging, and~her~story correspond with the diagnosis mentioned above. I explained that hip dysplasia is a condition wherein the hip joint has excessive play~and instability due to a variety of factors, including the depth and adequacy of the socket, the orientation of the femur bone, and ligament laxity around the hip joint. Dysplasia ranges in severity from borderline to alexandru, with treatment options being specific to the specific nature of the problem. Left untreated, the instability in the hip joint can cause progressive tearing of the labrum and deterioration of the surface cartilage, ultimately resulting in progressive osteoarthritis of the hip. I explained that femoroacetabular impingement (ABBY - Cam type) arises due to a bony or soft tissue conflict between the femur (ball) and acetabulum (socket) caused by an abnormality in the shape of the femoral head and neck. Over time, repetitive impingement can result in damage to the labrum and adjacent surface cartilage within the socket, ultimately giving rise to progressive osteoarthritis of the hip. I explained that although a labral tear can be a source of pain, it is rarely the root of the problem and typically occurs secondary to an underlying abnormality in the shape and mechanics of the hip joint. I reviewed conservative treatment options for Dysplasia and ABBY including activity modification to avoid positions of impingement or instability, physical therapy, non-steroidal anti-inflammatory medications, and various injections (corticosteroid and PRP) aimed at reducing inflammation in the hip joint or/and preventing dynamic instability and impingement. PRP injections may promote healing and reduce symptoms in certain cases but it will not repair chronically damaged tissue. Although these measures may help to buy time~and reduce current level of symptoms, they are not a definitive solution to the problem given the underlying abnormality in the shape of the hip joint. Patients who have failed conservative management and continue to experience symptoms are candidates for definitive surgical treatment, which may consist of hip arthroscopy alone or in combination with more invasive bony realignment procedures of the hip socket and/or femur called periacetabular osteotomy (LISANDRA) or derotational femoral osteotomy (DFO). Hip arthroscopy typically includes treating the labrum with either repair or reconstruction of the torn labrum; as well as addressing the underlying abnormalities by restoring the normal shape to the hip joint. If the cartilage is damaged a Microfracture surgical procedure may also be necessary to help stimulate the growth of fibrocartilage. If a patient requires a labral reconstruction or a Microfracture, the initial rehabilitation from the surgery may take longer, but the longwall machine operator helper results are typically favorable. I reviewed the technical aspects of periacetabular osteotomy (LISANDRA) including risks, benefits, and expected course of recovery.~Markunderstands that LISANDRA is an inpatient procedure carried out through two medium sized incisions on the front and back of the hip joint. The hip socket is cut, realigned, and stabilized with 2 3 internal screws. Risks include infection, bleeding, injury to nearby nerves or vessels, stiffness, persistent pain, instability, failure of bony healing, implant related complications, and venous thromboembolic disease. Rarely, revision surgery may be required to address these problems. Risks, potential complications, side effects and recovery from surgical procedure were discussed in length. We explained how this surgery is an open procedure, and though patients tend to do well in the long-term, it involves significant pain in the first 2-4 weeks post-op and a rather lengthy rehab.~Overall recovery takes approximately 6 12~months depending on the extent of damage and degree of repair. Markunderstands that she~will undergo hip arthroscopy 1 week prior to the LISANDRA to address damage inside the hip joint. Markunderstands that hip arthroscopy and LISANDRA are two separate procedures that are best performed one week apart, with the arthroscopy commencing first to "tighten up" any pathology evident in the hip joint (labral repair, etc.) and the LISANDRA open procedure occurring 7-10 days later to realign the acetabulum. We asked Halima to run up and down the stairs to elicit and localize her source of pain. ~After doing this, she was able to localize her pain. ~We then did an injection into her LEFT HIP JOINT. In order to differentiate between the various possible sources of pain~Mark opted to move forward with an intra articular injection today in clinic. After verbal consent was obtained and Markvoiced understanding of risks of infection , misplaced injection, fat or skin atrophy or injection into unintended structures, skin was prepped and draped in routine sterile fashion. With sterile technique, after local skin and subcutaneous tissues were injected with 5cc 1% lidocaine, an injection of 7cc of 1% lidocaine+marcaine~was injected into Shnos hip joint without complication. The procedure was well tolerated.~ Marknoted improved symptoms with activity immediately after injection. The injection took 100% of the pain away,~confirming~the hip joint as the major source of her~pain. This injection took away 100% of all of~her~sources of pain: adductor tree origin, hamstring, and pubic symphysis. We discussed how she can either do Left hip scope with Dr Thompson followed by a LISANDRA mid/end February or do a scope only for the right side now, followed by scope+LISANDRA on the left 3 month later. Markwill contact us if she~wishes to pursue further treatment in the future. Markis happy with this plan. I have also supplied~her~with handouts, outlining the expected surgical treatment and rehab involved. I wish~Markall the best, ~~ Gray Qureshi, PAC History Information - Allergies/Home Medication List Allergies/Adverse Reactions: adhesive tape Allergy (Verified 10/14/18 10:26) RASH,ITCHING cephalexin [From Keflex] Allergy (Verified 09/23/18 10:29) Vertigo erythromycin base Allergy (Verified 09/23/18 10:29) Vomiting SURGICAL SOAP Allergy (Uncoded 10/14/18 10:27) RASH & ITCHING Home Medications: NK [No Known Home Meds] 09/23/18 [Last Taken Unknown] I have personally reviewed and updated: medical history - Social History Smoking Status: Never smoked Alcohol Use: Rarely Review of Systems Review of Systems: Physical Exam Physical Exam:
[~2018-10-25 09:39] MED LIST: ACETAMINOPHEN 500 MG TAB PO PRN; HYDROCODONE/APAP 5/325 TAB PO PRN; LR 500 ML IV PRN; MIDAZOLAM 2 MG/2 ML VIAL IVP ONE; NALOXONE HCL 0.4 MG/ML INJ IVP PRN; ONDANSETRON 4 MG/2 ML VIAL IVP PRN; PHENYLEPHRINE HCL 100 MCG/ML SYR IVP PRN; PROMETHAZINE HCL 25 MG/ML INJ IVP PRN; fentaNYL 100 MCG/2 ML INJ IVP PRN; oxyCODONE IR 5 MG TAB PO PRN
[2018-10-25] MEDS ORDERED: PREGABALIN 150 MG CAP PO ONE (09:48)
[2018-10-25] MEDS ORDERED: ACETAMINOPHEN 500 MG TAB PO ONE (09:48)
[2018-10-25] MEDS ORDERED: CLINDAMYCIN 900 MG/DEXTROSE 50 ML IV ONE (09:48)
[2018-10-25] MEDS ORDERED: LR 1,000 ML IV ONE (10:24)
[2018-10-25] MEDS ORDERED: ceFAZolin 2 GM/DEXTROSE 100 ML IV ONE (10:30)
[2018-10-25] MEDS ORDERED: MIDAZOLAM 2 MG/2 ML VIAL IVP ONE (10:35)
[2018-10-25] MEDS ORDERED: fentaNYL 100 MCG/2 ML INJ ONE ×2 (10:36→17:48)
[2018-10-25] MEDS ORDERED: PROPOFOL 200 MG/20 ML VIAL ONE (10:36)
[2018-10-25] MEDS ORDERED: BUPIVACAINE/EPI 0.25% 30 ML SDV ONE (10:39)
[2018-10-25] MEDS ORDERED: EPINEPHrine 30 MG/30 ML MDV (0.1 MG/0.1 ML) ONE (10:39)
--- NOTE | 2018-10-25 10:40 | PDANEPAE ---
ANE Past Medical History - Cardiovascular History Hx Hypertension: No Hx Arrhythmias: No Hx Chest Pain: No Hx Coronary Artery / Peripheral Vascular Disease: No Hx CHF / Valvular Disease: Yes Hx Palpitations: No Cardiovascular History Comment: Pt was told when she was 17yrs old she had mitral valve prolape. never had any issues - Pulmonary History Hx COPD: No Hx Asthma/Reactive Airway Disease: No Hx Recent Upper Respiratory Infection: No Hx Oxygen in Use at Home: No Hx Sleep Apnea: No Sleep Apnea Screening Result - Last Documented: Negative - Neurologic History Hx Cerebrovascular Accident: No Hx Seizures: No Hx Dementia: No - Endocrine History Hx Diabetes: No Hypothyroid: No Hyperthyroid: No Obesity: no - Renal History Hx Renal Disorders: No - Liver History Hx Hepatic Disorders: No - Neurological & Psychiatric Hx Hx Neurological and Psychiatric Disorders: No - Cancer History Hx Cancer: No - GI History Hx Gastrointestinal Disorders: No Gastrointestinal History Comment: hip dysplasia - Other Health History Other Health History: none - Chronic Pain History Chronic Pain: Yes (RIGHT HIP) - Surgical History Prior Surgeries: 4yrs ago bilat ankle reconstructive. LEFT HIP LISANDRA ANE Review of Systems Review of Systems: - Exercise capacity METS (RN): 5 METS ANE Patient History - Allergies Allergies/Adverse Reactions: adhesive tape Allergy (Verified 10/14/18 10:26) RASH,ITCHING cephalexin [From Keflex] Allergy (Verified 09/23/18 10:29) Vertigo erythromycin base Allergy (Verified 09/23/18 10:29) Vomiting SURGICAL SOAP Allergy (Uncoded 10/14/18 10:27) RASH & ITCHING - Home Medications Home Medications: NK [No Known Home Meds] 09/23/18 [Last Taken Unknown] - NPO status NPO Since - Liquids (Date): 10/25/18 NPO Since - Liquids (Time): 05:00 NPO Since - Solids (Date): 10/24/18 NPO Since - Solids (Time): 21:00 - Anes Hx Anes Hx: no prior problems - Smoking Hx Smoking Status: Never smoked - Alcohol Use Alcohol Use: Rarely - Family Anes Hx Family Hx Anesthesia Complications: none ANE Labs/Vital Signs - Vital Signs Vital Signs: reviewed preoperatively; see RN documention for details Blood Pressure: 113/76 Heart Rate: 67 Respiratory Rate: 16 O2 Sat (%): 98 Height: 163.83 cm Weight: 48.988 kg ANE Physical Exam - Airway Neck exam: FROM Mallampati Score: Class 1 Mouth exam: normal dental/mouth exam - Pulmonary Pulmonary: clear to auscultation - Cardiovascular Cardiovascular: regular rate and rhythym - ASA Status ASA Status: I ANE Anesthesia Plan Anesthesia Plan: general endotracheal anesthesia
[2018-10-25] MEDS ORDERED: ROCURONIUM 50 MG/5 ML VIAL ONE ×2 (10:41→13:16)
[2018-10-25] MEDS ORDERED: DEXAMETHASONE 4 MG/ML VIAL ONE (11:32)
[2018-10-25] MEDS ORDERED: GLYCOPYRROLATE 0.2 MG/1 ML VIAL ONE (12:09)
[2018-10-25] MEDS ORDERED: HYDROmorphONE/DILAUDID 2 MG/ML INJ ONE (14:09)
[2018-10-25] MEDS ORDERED: ceFAZolin 1 GM VIAL ONE ×2 (14:19)
[2018-10-25] MEDS ORDERED: ONDANSETRON 4 MG/2 ML VIAL ONE (16:43)
[2018-10-25] MEDS ORDERED: oxyCODONE IR 5 MG TAB PO PRN (17:14)
[2018-10-25] MEDS ORDERED: NALOXONE HCL 0.4 MG/ML INJ IVP PRN (17:14)
[2018-10-25] MEDS ORDERED: DIAZEPAM 5 MG/ML 1 ML SYR IVP PRN (17:14)
[2018-10-25] MEDS ORDERED: HYDROCODONE/APAP 5/325 TAB PO PRN (17:14)
[2018-10-25] MEDS ORDERED: LR 500 ML IV PRN (17:14)
--- NOTE | 2018-10-25 17:35 | POSTANESTH ---
Post Anesthetic Evaluation Cardiovascular Status: Normal, Stable Respiratory Status: Normal, Stable Level of Consciousness/Mental Status: Can Participate in Eval, Mildly Sleepy, Arousable Pain Control: Adequate, Prn Tx Ordered (No pain in operative hips, however feet are hurting from boot/positioning during the distraction.) Nausea/Vomiting Control: Adequate, Prn Tx Ordered Complications Possibly Related to Anesthesia: None Noted
[2018-10-25] MEDS ORDERED: PROMETHAZINE HCL 25 MG/ML INJ ONE (17:48)
[2018-10-25] MEDS: PROMETHAZINE HCL 25 MG/ML INJ IVP PRN ×2 (17:53→18:38)
[2018-10-25] MEDS: fentaNYL 100 MCG/2 ML INJ IVP PRN ×2 (17:53→18:13)
[2018-10-25 19:01] VITALS: BP 104/67
== END 2018-10-25 20:26 | disposition home or self-care (01) ==
LOC: FSGY 09:39
PROVIDERS: ATTEND Orthopaedic Surgery Sports Medicine
PROC: 0MQL4ZZ Repair Right Hip Bursa and Ligament, Percutaneous Endoscopic Approach (ICD-10-PCS; principal; 2018-10-25 11:00)
PROC: 0QP704Z Removal of Internal Fixation Device from Left Upper Femur, Open Approach (ICD-10-PCS; principal; 2018-10-25 11:00)
PROC: 0QP304Z Removal of Internal Fixation Device from Left Pelvic Bone, Open Approach (ICD-10-PCS; principal; 2018-10-25 11:00)
PROC: 0SQ94ZZ Repair Right Hip Joint, Percutaneous Endoscopic Approach (ICD-10-PCS; principal; 2018-10-25 11:00)
PROC: 0QQ64ZZ Repair Right Upper Femur, Percutaneous Endoscopic Approach (ICD-10-PCS; principal; 2018-10-25 11:00)
DX: Q65.89 Other specified congenital deformities of hip (principal); M76.891 Other specified enthesopathies of right lower limb, excluding foot; M24.511 Contracture, right shoulder; Z47.2 Encounter for removal of internal fixation device
CPT/HCPCS: C1713; J0171; J0690; J1100; J1170; J2405; J2550; J2704; J3010

== ENCOUNTER 2018-12-02 05:46 | Inpatient (IN) | payer SELFPAY ==
--- NOTE | 2018-12-01 11:42 | PDGENHP ---
History and Physical - Chief Complaint RIGHT HIP PAIN - History of Present Illness 1. History of LEFT LISANDRA 2. 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 ~Markenjoys ultra marathons, lifting weights, cross country skiing. Halima's~RIGHT~hip pain~started 16 years ago, with~some~recalled trauma or injury ~(fractured coccyx in 1987) (stress~fracture right inferior pubic ramus 2003), and with~some~previous complaints.~Markhas~a known history of hip dysplasia. Referred by Dr. Thompson for~hip~dysplasia. Presentation today is of~anterior, posterior, lateral RIGHT~hip pain. ~The hip~ does~wake her~at night~and does~click and catch on~her. Sitting~can be a real struggle~for her.~Markdoes~report suffering from lower back pain episodes. Markhas~participated in physical therapy (June 2017-present)~and has~ tried other conservative measures including dry needling, chiropractic treatments and massage therapy.~Siena~has not~received sufficient symptomatic improvement. Markhas not~utilized medication for pain management. Markunderstands that~siena~has a hip and pelvis problem which should be researched and wishes to get a better understanding of~her~hip status, followed by an establishment of a treatment strategy, hoping~archanawould be able to get back to~her~well being active life. History: Past medical history:~~ None which is relevant~ Relevant familial history:~None which is relevant~ Past surgical history:~ No. Surgery Anesthesia 1 Right ankle reconstruction general 2 Left ankle reconstruction general 3 Bilateral breast implants general 4. Left Hip Scope 5. Left LISANDRA 6. Right Hip Scope Markdenies problematic issues with general anesthesia in the past. I have reviewed, verified and agree with the past medical, surgical, family and social history. Current Medications:~currently has no medications in their medication list. ALLERGIES:~is allergic to adhesive; erythromycin; and keflex [cephalexin]. Objective: Physical Examination: Markis 5~feet~4~inches tall and weighs~108~Lbs. Markis AAO x3; she~is well- nourished, in NAD. Skin is warm and dry. ~Breathing is non-labored. ~CV with RRR by pulse. Abdomen is soft, NTND. Currently,~she~walks with a~abnormal~antalgic gait favoring LEFT side Trendelenburg sign is~negative~and proprioception~is reduced,~both~sides. She~presents~with mild~signs of joint laxity.~Beightons Score:~2 (Right thumb, touching floor) Lower spine examination is~positive~for sciatic~or femoral nerve irritation with negative~SLR &~femoral stretch tests. Range of motion of the spine is normal~for flexion, extension, and rotations,~with no~associated pain. Strength, Sensation and pulses are~normal -~bilaterally Ankles and knees exams are~normal~and~no~mal-alignment is evident.~ Siena~has~right~1~cm short leg length discrepancy. Thigh circumference is~symmetric~with no evidence for muscle atrophy~on both~ sides. Hip ROM (degrees): FL ER At 90~hip FL IR At 90~hip FL AB AD EX IR Neutral hip ER Neutral hip R 110 55 20 40 10 15 40 25 L 110 45 40 40 10 20 50 20 Specific hip and pelvis tests: Impingement Test JE Roll Add. Longus R +++ +++ Negative +++ L +++ +++ Negative +++ Glut. Med ITB Posterior Imp R Negative 5/5 strength Negative 5/5 strength Negative L Negative 5/5 strength Negative 5/5 strength Negative Squeeze test measured~strong Bony Symphysis pubis is~painful~to touch while concentric activity of the rectus abdominis, does~produce pain at its insertion. Ilio Psos specific tests are~positive for pain during cycling for~both hips~and no snap. HF has~good strength, no pain~both hips. Greater trochanteric burse is~pain free~on both hips. Piriformis tests: FAIR is~negative,~with no~local signs of neuritis related to sciatic nerve. SIJs examination is~normal~with~normal~JE in relation and local tenderness. Hamstrings tests are~negative~functional contraction and postive~tendinopathy both hips. Adductor Tree origin: tender to palpation bilaterally. Imaging: Radiology studies which I~have personally reviewed, analyzed and measured are below: XR: AP of the hip and pelvis: Performed in a~good~technique Coccyx to pubic symphysis distance~1.5~cm. Standing [place]~Lines are preserved. Minimal~Pathological signs are seen in the Symphysis Pubis.~ Minimal~Pathological signs are seen at the Ischial~tuberosity. ~ Specific measurements show: NSA~ LCE Sourcil~Angle Sharp's angle Lat. Cam Lat. Pincer C.Over~sign Head~Coverage % ATDmm R N 25 8 38 + - - 85 N L N 18 14 45 + - - 75 N Pos. wall sign ISS NAD ~~Dysplasia Comments R Negative Negative 17.2~mm + L Negative Negative 16.6~mm ++ Sclerosis Sup. Lat. OA Cysts Joint Space-WBZ Joint Space-Medial R Negative Negative Negative 4.4~mm 3.9~mm L Negative Negative Negative 5.3~mm 4.9~mm CT / 3D:~MEASUREMENTS: Right hip: Lateral center edge angle: 15 degrees Anterior center edge angle: 38 degrees Equatorial acetabular version angle: 29 degrees Anteverted. Cranial acetabular version angle: 30 degrees Anteverted. Femoral neck shaft angle: 140 degrees Femoral neck version angle: 14 degrees internalized Femoral shaft torsion angle: 0 degrees Left hip: Lateral center edge angle: 18 degrees Anterior center edge angle: 34 degrees Equatorial acetabular version angle: 33 degrees Anteverted. Cranial acetabular version angle: 28 degrees Anteverted. Femoral neck shaft angle: 143 degrees Femoral neck version angle: 4 degrees externalized Femoral shaft torsion angle: 17 degrees externalized MRI shows:~good cartilage coverage, labral tear, no bone edema or cysts. Impression and plan:Doc Varghese~is a~42 y.o.~active female~suffering from symptomatic~RIGHT~hip pain due to~Hip Dyplasia causing significant disability to~her~and altering~her~sport and life activities. Physical examination, imaging, and~her~story correspond with the diagnosis mentioned above. I explained that hip dysplasia is a condition wherein the hip joint has excessive play~and instability due to a variety of factors, including the depth and adequacy of the socket, the orientation of the femur bone, and ligament laxity around the hip joint. Dysplasia ranges in severity from borderline to alexandru, with treatment options being specific to the specific nature of the problem. Left untreated, the instability in the hip joint can cause progressive tearing of the labrum and deterioration of the surface cartilage, ultimately resulting in progressive osteoarthritis of the hip. I explained that femoroacetabular impingement (ABBY - Cam type) arises due to a bony or soft tissue conflict between the femur (ball) and acetabulum (socket) caused by an abnormality in the shape of the femoral head and neck. Over time, repetitive impingement can result in damage to the labrum and adjacent surface cartilage within the socket, ultimately giving rise to progressive osteoarthritis of the hip. I explained that although a labral tear can be a source of pain, it is rarely the root of the problem and typically occurs secondary to an underlying abnormality in the shape and mechanics of the hip joint. I reviewed conservative treatment options for Dysplasia and ABBY including activity modification to avoid positions of impingement or instability, physical therapy, non-steroidal anti-inflammatory medications, and various injections (corticosteroid and PRP) aimed at reducing inflammation in the hip joint or/and preventing dynamic instability and impingement. PRP injections may promote healing and reduce symptoms in certain cases but it will not repair chronically damaged tissue. Although these measures may help to buy time~and reduce current level of symptoms, they are not a definitive solution to the problem given the underlying abnormality in the shape of the hip joint. Patients who have failed conservative management and continue to experience symptoms are candidates for definitive surgical treatment, which may consist of hip arthroscopy alone or in combination with more invasive bony realignment procedures of the hip socket and/or femur called periacetabular osteotomy (LISANDRA) or derotational femoral osteotomy (DFO). Hip arthroscopy typically includes treating the labrum with either repair or reconstruction of the torn labrum; as well as addressing the underlying abnormalities by restoring the normal shape to the hip joint. If the cartilage is damaged a Microfracture surgical procedure may also be necessary to help stimulate the growth of fibrocartilage. If a patient requires a labral reconstruction or a Microfracture, the initial rehabilitation from the surgery may take longer, but the half-way results are typically favorable. I reviewed the technical aspects of periacetabular osteotomy (LISANDRA) including risks, benefits, and expected course of recovery.~Markunderstands that LISANRDA is an inpatient procedure carried out through two medium sized incisions on the front and back of the hip joint. The hip socket is cut, realigned, and stabilized with 2 3 internal screws. Risks include infection, bleeding, injury to nearby nerves or vessels, stiffness, persistent pain, instability, failure of bony healing, implant related complications, and venous thromboembolic disease. Rarely, revision surgery may be required to address these problems. Risks, potential complications, side effects and recovery from surgical procedure were discussed in length. We explained how this surgery is an open procedure, and though patients tend to do well in the long-term, it involves significant pain in the first 2-4 weeks post-op and a rather lengthy rehab.~Overall recovery takes approximately 6 12~months depending on the extent of damage and degree of repair. Markunderstands that she~will undergo hip arthroscopy 1 week prior to the LISANDRA to address damage inside the hip joint. Markunderstands that hip arthroscopy and LISANDRA are two separate procedures that are best performed one week apart, with the arthroscopy commencing first to "tighten up" any pathology evident in the hip joint (labral repair, etc.) and the LISANDRA open procedure occurring 7-10 days later to realign the acetabulum. We asked Halima to run up and down the stairs to elicit and localize her source of pain. ~After doing this, she was able to localize her pain. ~We then did an injection into her LEFT HIP JOINT. In order to differentiate between the various possible sources of pain~Mark opted to move forward with an intra articular injection today in clinic. After verbal consent was obtained and Markvoiced understanding of risks of infection , misplaced injection, fat or skin atrophy or injection into unintended structures, skin was prepped and draped in routine sterile fashion. With sterile technique, after local skin and subcutaneous tissues were injected with 5cc 1% lidocaine, an injection of 7cc of 1% lidocaine+marcaine~was injected into Halima's hip joint without complication. The procedure was well tolerated.~ Marknoted improved symptoms with activity immediately after injection. The injection took 100% of the pain away,~confirming~the hip joint as the major source of her~pain. This injection took away 100% of all of~her~sources of pain: adductor tree origin, hamstring, and pubic symphysis. We discussed how she can either do Left hip scope with Dr Thompson followed by a LISANDRA mid/end February or do a scope only for the right side now, followed by scope+LISANDRA on the left 3 month later. Markwill contact us if she~wishes to pursue further treatment in the future. Markis happy with this plan. I have also supplied~her~with handouts, outlining the expected surgical treatment and rehab involved. I wish~Markall the best, ~~ Gray Qureshi, PAC History Information - Allergies/Home Medication List Allergies/Adverse Reactions: adhesive tape Allergy (Verified 11/26/18 09:29) RASH,ITCHING cephalexin [From Keflex] Allergy (Verified 11/26/18 09:29) Vertigo erythromycin base Allergy (Verified 11/26/18 09:29) Vomiting SURGICAL SOAP Allergy (Uncoded 11/26/18 09:29) RASH & ITCHING Home Medications: NK [No Known Home Meds] 09/23/18 [Last Taken Unknown] I have personally reviewed and updated: medical history - Social History Smoking Status: Never smoked Review of Systems Review of Systems: Physical Exam Physical Exam:
[2018-12-02] MEDS ORDERED: TRANEXAMIC ACID 1,000 MG in NS 100 ML IV ONE (06:00)
--- NOTE | 2018-12-02 06:41 | PDANEPAE ---
ANE History of Present Illness right hip DJD, here for LISANDRA ANE Past Medical History - Cardiovascular History Hx Hypertension: No Hx Arrhythmias: No Hx Chest Pain: No Hx Coronary Artery / Peripheral Vascular Disease: No Hx CHF / Valvular Disease: Yes Hx Palpitations: No Cardiovascular History Comment: Pt was told when she was 17yrs old she had mitral valve prolape. never had any issues - Pulmonary History Hx COPD: No Hx Asthma/Reactive Airway Disease: No Hx Recent Upper Respiratory Infection: No Hx Oxygen in Use at Home: No Hx Sleep Apnea: No Sleep Apnea Screening Result - Last Documented: Negative - Neurologic History Hx Cerebrovascular Accident: No Hx Seizures: No Hx Dementia: No - Endocrine History Hx Diabetes: No - Renal History Hx Renal Disorders: No - Liver History Hx Hepatic Disorders: No - Neurological & Psychiatric Hx Hx Neurological and Psychiatric Disorders: No - Cancer History Hx Cancer: No - Congenital Disorder History Hx Congenital Disorders: No - GI History Hx Gastrointestinal Disorders: No Gastrointestinal History Comment: hip dysplasia - Other Health History Other Health History: none - Chronic Pain History Chronic Pain: Yes (RIGHT HIP) - Surgical History Prior Surgeries: 4yrs ago bilat ankle reconstructive. LEFT HIP LISANDRA ANE Review of Systems Review of Systems: - Exercise capacity METS (RN): 6 METS ANE Patient History - Allergies Allergies/Adverse Reactions: adhesive tape Allergy (Verified 11/26/18 09:29) RASH,ITCHING cephalexin [From Keflex] Allergy (Verified 11/26/18 09:29) Vertigo erythromycin base Allergy (Verified 11/26/18 09:29) Vomiting SURGICAL SOAP Allergy (Uncoded 11/26/18 09:29) RASH & ITCHING - Home Medications Home Medications: NK [No Known Home Meds] 09/23/18 [Last Taken Unknown] - Smoking Hx Smoking Status: Never smoked - Family Anes Hx Family Hx Anesthesia Complications: none ANE Labs/Vital Signs - Vital Signs Height: 162.56 cm Weight: 48.988 kg ANE Physical Exam - Airway Neck exam: FROM Mallampati Score: Class 1 Mouth exam: normal dental/mouth exam - Pulmonary Pulmonary: no respiratory distress, no rales or rhonchi - Cardiovascular Cardiovascular: regular rate and rhythym, no murmur, rub, or gallop - ASA Status ASA Status: II ANE Anesthesia Plan Anesthesia Plan: general endotracheal anesthesia Total IV Anesthesia: No
[2018-12-02] MEDS ORDERED: PREGABALIN 150 MG CAP PO ONE (06:43)
[2018-12-02] MEDS ORDERED: SCOPOLAMINE HYDROBROMIDE 1 MG/3 DAYS PATCH TD ONE (06:43)
[2018-12-02] MEDS ORDERED: ACETAMINOPHEN 500 MG TAB PO ONE (06:43)
[2018-12-02] MEDS ORDERED: ceFAZolin 2 GM/DEXTROSE 100 ML IV ONE (06:43)
[2018-12-02] MEDS ORDERED: LR 1,000 ML IV ONE (06:45)
[2018-12-02] MEDS ORDERED: DEXMEDETOMIDINE HCL 400 MCG in NS 100 ML IV ONE (07:00)
[2018-12-02] MEDS ORDERED: SCOPOLAMINE HYDROBROMIDE 1 MG/3 DAYS PATCH TD SCH (07:00)
[2018-12-02] MEDS ORDERED: PHENYLEPHRINE 10 MG/ML SDV ONE (07:01)
[2018-12-02] MEDS ORDERED: PHENYLEPHRINE HCL 100 MCG/ML SYR ONE (07:01)
[2018-12-02] MEDS ORDERED: LIDOCAINE 2% 100 MG/5 ML SYR ONE (07:01)
[2018-12-02] MEDS ORDERED: PROPOFOL 200 MG/20 ML VIAL ONE (07:02)
[2018-12-02] MEDS ORDERED: KETAMINE 200 MG/20 ML VIAL ONE (07:02)
[2018-12-02] MEDS ORDERED: MIDAZOLAM 2 MG/2 ML VIAL ONE (07:12)
[2018-12-02] MEDS ORDERED: CITRATE DEXTROSE SOLN 500 ML BAG ONE (08:04)
[2018-12-02] MEDS ORDERED: DIAZEPAM 10 MG/2 ML SYR IVP PRN (11:32)
[2018-12-02] MEDS ORDERED: MEPERIDINE 25 MG/0.5 ML AMP IVP PRN (11:32)
[2018-12-02] MEDS ORDERED: oxyCODONE IR 5 MG TAB PO PRN (11:32)
[2018-12-02] MEDS ORDERED: PROMETHAZINE HCL 25 MG/ML INJ IVP PRN (11:32)
[2018-12-02] MEDS ORDERED: METOCLOPRAMIDE 10 MG/2 ML VIAL IVP PRN (11:32)
[2018-12-02] MEDS ORDERED: NALOXONE HCL 0.4 MG/ML INJ IVP PRN ×2 (11:32→12:59)
[2018-12-02] MEDS ORDERED: LR 500 ML IV PRN (11:32)
--- NOTE | 2018-12-02 12:10 | SUROPNOTE ---
KAYLEN Operative Report - Surgery Surgery was performed at [facility] on~12/02/18~ Diagnosis:~Right 1. Hip Acetabular Dysplasia ~ Operation: Right~Leonela Acetabular Osteotomy (LISANDRA) Surgeon: Flavio Genao MD Cardiac Rehabilitation Program Director:~~zack hughes MD Anesthetic: General + spinal Procedure: General anesthetic. Antibiotics given. Cell saver in use. Fluoroscopy. Phase 1: Position lateral, diagonal skin incision between ischial tuberosity and greater trochanter as for posterior hip approach. Blunt split of glut max fibers. Identification of fat pad overlying sciatic nerve. Exposure of sciatic nerve under fat pad, gently retracting it away-medially to ischial tuberosity. Exposure of subcotoloid fossa proximal to short rotators. UsingPrecision saw, osteotomy of subcotoloid [id number] mm short of (lateral to) thesciatic notch. Closure of lateral cut. Patient is turned supine. Phase 2: Skin incision just distal to ASIS. Using diathermy the iliac spine was exposed and inguinal ligament + Sartorious were retracted medially, taking the LFCN with them, protecting it. Inner ilium was dissected from iliacus muscle bluntly , with a cob and swab. Dissection continued towards lateral superior ramus pubis. Using fluoroscopy an osteotomy of lateral superior ramus, just medial to tear drop, was performed with~curved fish mouth osteotome. Phase 3: Osteotomy lines of the ilium were marked with diathermy as pre planned according to XR/CT and expected correction of acatabulum. 2 Shanz screws were drilled into central acetabular fragment, corresponding with planned correction angles, in order to mobilize central acetabular fragment after osteotomy is complete. ~Iliac osteotomy was performed with reciprocating saw and the main acetabular fragment was moved to realign weight bearing position. After confirmation of correction using fluoroscopy in AP and false profile planes, the fragment was fixed with 2 -~5.5mm~~full threaded~screws~and 1 -~4mm~~full threaded~screw. Inguinal ligament and Sartorious were attached back to ASIS through drill holes. Incision was closed according to soft tissue layers. Skin was closed with~subdermal Monocryl. Final fluoro shots were obtained to confirm position/correction. After surgery~Varghese~moved both lower limbs and had no NV motor compromise. Specimen - none Bleeding -~500ml Complication - none Evaluation under anesthesia: IR at 90 degrees hip flexion prior to LISANDRA was~20-25~degrees and after LISANDRA was 10 -15~degrees. Bleeding:~500~cc into cell-saver, 270~of blood products were returned to patient. Post op instructions: 1.~toe touch till post op XR then gradual FWB~weight bearing crutches for 6 weeks 2. Continuous SCD 3. Aspirin 81 mg X1 day starting POD1 4. Avoid hip flexion past 90 and hip External rotation. 5. PT according to my recommendations at follow up visit Kind regards, Dr. Flavio Genao
--- NOTE | 2018-12-02 12:27 | POSTANESTH ---
Post Anesthetic Evaluation Cardiovascular Status: Normal, Stable Respiratory Status: Normal, Stable Level of Consciousness/Mental Status: Can Participate in Eval, Alert and Oriented Pain Control: Adequate, Prn Tx Ordered Nausea/Vomiting Control: Adequate, Prn Tx Ordered Complications Possibly Related to Anesthesia: None Noted (COMMUNICATING WELL DESPITE bp READINGS LOW, TREATING I EVALUATED HER WITHOUT COMPLICATION)
[2018-12-02] MEDS ORDERED: BISACODYL 10 MG SUPP PR PRN (12:57)
[2018-12-02] MEDS ORDERED: POLYETHYLENE GLYCOL 3350 17 GM PKT PO PRN (12:57)
[2018-12-02] MEDS ORDERED: MAGNESIUM HYDROXIDE 30 ML UDCUP PO PRN (12:57)
[2018-12-02] MEDS ORDERED: ACETAMINOPHEN 325 MG TAB PO PRN (12:57)
[2018-12-02] MEDS ORDERED: LACTULOSE 20 GM/30 ML UDCUP PO PRN (12:57)
[2018-12-02] MEDS ORDERED: ONDANSETRON 4 MG/2 ML VIAL IVP PRN (12:57)
[2018-12-02] MEDS ORDERED: ONDANSETRON DISINTEGRATING 4 MG TAB PO PRN (12:57)
[2018-12-02] MEDS ORDERED: DIAZEPAM 2 MG TAB PO PRN (12:57)
[2018-12-02] MEDS ORDERED: diphenhydrAMINE 25 MG CAP PO PRN (12:59)
[2018-12-02] MEDS ORDERED: HYDROmorphONE/DILAUDID 6 MG/30 ML PCA IV PRN (12:59)
[2018-12-02] MEDS ORDERED: NS 1,000 ML IV SCH (13:00)
[2018-12-02] MEDS ORDERED: HYDROmorphONE/DILAUDID 4 MG TAB PO PRN (13:00)
--- NOTE | 2018-12-02 14:45 | PDMN ---
Medical Necessity Medical necessity: Pt meets inpt criteria per MD order and Musculoskeletal Surgery GRG, R periacetabular osteotomy, MCR IP only list 42 y/o w/hx L LISANDRA now admitted for R LISANDRA for hip dysplasia and post-op care.
[2018-12-02] MEDS: NAPROXEN SODIUM 220 MG TAB PO SCH ×2 (16:55→22:17)
[2018-12-02] MEDS: SENNOSIDES/DOCUSATE SODIUM TAB PO SCH (22:09)
[2018-12-03] MEDS ORDERED: PANTOPRAZOLE SODIUM 40 MG TAB PO SCH (09:00)
[2018-12-03] MEDS: NAPROXEN SODIUM 220 MG TAB PO SCH (09:32)
[2018-12-03] MEDS: SENNOSIDES/DOCUSATE SODIUM TAB PO SCH (09:41)
[2018-12-03 12:07] VITALS: BP 97/55
--- NOTE | 2018-12-03 13:40 | ASMTLACE ---
JAYLENE Length of stay for Answers: 1 day current admission Acuity / Level of Answers: Yes Care: Did the patient have an inpatient admission? Comorbidities - select Answers: Congestive heart failure all that apply Opioid dependence / Chronic pain # of Emergency department Answers: 0 visits in the last 6 months Score: 10 Date Signed: 12/03/2018 01:39 PM Electronically Signed By:LISBETH Luna
[2018-12-04] MEDS ORDERED: ASPIRIN EC 81 MG TAB PO SCH (12:57)
[2018-12-05] MEDS ORDERED: PATCH REMOVAL 1 EA PATCH TD SCH (06:57)
== END 2018-12-03 13:36 | disposition home or self-care (01) | DRG 517 ==
LOC: F3N 05:46
PROVIDERS: ADMIT Orthopaedic Surgery Sports Medicine; ATTEND Orthopaedic Surgery Sports Medicine
PROC: 0QS404Z Reposition Right Acetabulum with Internal Fixation Device, Open Approach (ICD-10-PCS; principal; 2018-12-02 07:15)
DX: Q65.89 Other specified congenital deformities of hip (principal)
CPT/HCPCS: 97161-GP; C1713; J0690; J2001; J2250; J2270; J2370; J2704